=== PATIENT | male | born 1970 | race Caucasian/White ===

== ENCOUNTER 2017-12-13 09:22 | Emergency (ER) | END 2017-12-13 11:39 | disposition home or self-care (01) | DX: I82.402 Acute embolism and thrombosis of unspecified deep veins of left lower extremity (principal); Z87.39 Personal history of other diseases of the musculoskeletal system and connective tissue ==

== ENCOUNTER 2017-12-23 08:13 | Emergency (ER) | payer SELFPAY ==
[~2017-12-23] VITALS: Ht 185.4 cm; Wt 117.0 kg
[~2017-12-23 08:13] MED LIST: XARE15TA PO; Z.0.NO CURRENT MEDS
[2017-12-23 08:22] VITALS: BP 151/102; PULSE 128; RESP 20; TEMP 98; O2SAT 97
[2017-12-23] MEDS ORDERED: TRAM50 PO (09:36)
--- NOTE | 2017-12-23 09:37 | PD ---
HPI Chief Complaint: Musculoskeletal Complaint Time Seen by Provider: 08:59 Travel History International Travel<30 days: No Contact w/Intl Traveler<30days: No Traveled to known affect area: No History of Present Illness HPI This is a 47-year-old male here with right knee and ankle pain ongoing for several weeks. Denies injury or trauma. Patient was seen last week diagnosed with left lower extremity DVT and started on Xarelto. He was recently told he cannot take aspirin while taking Xarelto therefore comes to the ED for clarification of what he can take for his knee pain. He reports the pain in his knee and ankle are described as aching, mild to moderate severity, exacerbated by standing on the extremity for 8-10 hours while at work, relieved with rest. To clarify this knee pain was present prior to diagnosis of the DVT and has not worsened. No altered sensation or weakness of the extremity. He has no other complaints. He reports compliance with his Xarelto. PFSH Past Medical History Diminished Hearing: No Deep Vein Thrombosis: Yes (LLE) Gout: Yes (SINCE YOUNG AGE; FAMILIAL HX) Musculoskeletal: Yes (LEFT KNEE PROBLEMS) Influenza Vaccination: No ?: Not Past Surgical History Surgical History: No Previous Surgery Social History Alcohol Use: Yes (' A LOT OF BEER') Tobacco Use: No Substance Use: No Allergies-Medications (Allergen,Severity, Reaction): Coded Allergies: penicillin G (Unverified Allergy, Severe, RASH, 12/23/17) Reported Meds & Prescriptions Reported Meds & Active Scripts Active Xarelto (Rivaroxaban) 15 Mg Tab 15 Mg PO Q12HR 21 Days Review of Systems Except as stated in HPI: all other systems reviewed are Neg General / Constitutional: No: Fever Eyes: No: Visual changes HENT: No: Headaches Cardiovascular: No: Chest Pain or Discomfort Respiratory: No: Shortness of Breath Gastrointestinal: No: Abdominal Pain Genitourinary: No: Dysuria Skin: No Rash Neurologic: No: Weakness Physical Exam Narrative GENERAL: Alert and well-appearing 47-year-old male. Resting comfortably on stretcher in no distress. SKIN: Warm and dry. HEAD: Normocephalic. EYES: No scleral icterus. No injection or drainage. NECK: Supple, trachea midline. No JVD or lymphadenopathy. CARDIOVASCULAR: Regular rate and rhythm without murmurs, gallops, or rubs. RESPIRATORY: Breath sounds equal bilaterally. No accessory muscle use. GASTROINTESTINAL: Abdomen soft, non-tender, nondistended. MUSCULOSKELETAL: No cyanosis. LLE: Mild tenderness to the anterior aspect of the knee and ankle. No deformity. No warmth or erythema of the joints. No effusion. There is notable nonpitting edema to the lower extremity and ankle. He has full range of motion of the knee ankle and all toes. Normal sensation. Palpable DP pulse. Brisk cap refill. BACK: Nontender without obvious deformity. No CVA tenderness. Data Data Last Documented VS Vital Signs Date Time Temp Pulse Resp B/P (MAP) Pulse Ox O2 Delivery O2 Flow Rate FiO2 12/23/17 08:22 98.0 128 20 151/102 (118) 97 MDM Medical Decision Making Medical Screen Exam Complete: Yes Emergency Medical Condition: Yes Differential Diagnosis Pain related to DVT, arthritis, clinical worsening of DVT unlikely Narrative Course 47-year-old male with known DVT in the left lower extremity here for clarification on what OTC analgesics he is able to take for his leg pain. He was told by a pharmacist he is unable to take aspirin as he usually does for the pain. He denies clinical worsening of the pain or swelling in the leg. The pain is exacerbated by standing for 8-10 hours while at work. He reports compliance with Xarelto. He is instructed to take OTC Tylenol and will be given a few day supply of Ultram as needed for leg pain unrelieved by Tylenol. He is to follow-up with the [facility]. Return precautions discussed. Diagnosis Primary Impression: Leg pain Qualified Codes: M79.605 - Pain in left leg Referrals: [facility] Additional Instructions: Take Tylenol as needed for pain. Ultram as needed for severe pain. Follow-up with the [facility]. Continue Xarelto as directed. Return if he develop new or worsening symptoms as discussed. Scripts Tramadol (Ultram) 50 Mg Tab 50 MG PO Q6H Y for PAIN, #12 TAB 0 Refills Prov: Zita Roberto 12/23/17 Disposition: 01 DISCHARGE HOME Condition: Stable Zita Roberto December 23, 2017 09:37
[2017-12-23 09:39] VITALS: BP 136/82; PULSE 98; RESP 16; O2SAT 98
[2017-12-23] MEDS ORDERED: ACETAMINOPHEN 500 MG CPLT PO ONE (09:45)
== END 2017-12-23 09:53 | disposition home or self-care (01) ==
LOC: PHED 08:13
DX: M79.605 Pain in left leg (principal); I82.402 Acute embolism and thrombosis of unspecified deep veins of left lower extremity
CPT/HCPCS: 99283